=== PATIENT | female | born 1985 | race Asian ===

== ENCOUNTER 2019-12-17 16:41 | Outpatient (CLI) | payer MEDICAID ==
[~2019-12-17] VITALS: Ht 165.1 cm; Wt 79.1 kg
[2019-12-17 16:52] VITALS: BP 121/83; PULSE 87; TEMP 98
[2019-12-17] MEDS ORDERED: KENALOG DENTAL P5 GM DT (17:07)
[2019-12-17] MEDS ORDERED: LAMICTAL 100MG100 MG PO (17:07)
[2019-12-17] MEDS ORDERED: PRENATAL (17:08)
[2019-12-17 17:30] VITALS: BP 121/83; PULSE 87; TEMP 98
[2019-12-17 18:00] VITALS: BP 138/91; PULSE 74
[2019-12-17 18:15] VITALS: BP 143/97; PULSE 71
[2019-12-17 18:30] VITALS: BP 138/94; PULSE 71
--- NOTE | 2019-12-17 18:45 | NUR ---
SVE unchanged from previous exam. Pt ok with plan to discharge home.
[2019-12-17 18:50] VITALS: BP 129/76; PULSE 98
--- NOTE | 2019-12-17 19:00 | NUR ---
Discharge instructions reviewed with patient, pt and spouse verbalized understanding. All questions answered. Pt and spouse seen ambulating off unit.
== END 2019-12-17 19:00 | disposition home or self-care (01) ==
LOC: LDRO 16:41 → LDR 17:15 → LDRO 19:00
DX: O62.9 Abnormality of forces of labor, unspecified (principal); Z3A.39 39 weeks gestation of pregnancy
CPT/HCPCS: OP

== ENCOUNTER 2019-12-21 21:08 | Outpatient (CLI) | payer MEDICAID ==
[~2019-12-21] VITALS: Ht 165.1 cm; Wt 79.5 kg
[~2019-12-21 21:08] MED LIST: KENALOG DENTAL P5 GM DT; LAMICTAL 100MG100 MG PO; PRENATAL
[2019-12-21 21:30] VITALS: BP 121/77; PULSE 83; TEMP 98.3
--- NOTE | 2019-12-21 22:00 | NUR ---
2109- Patient ambulatory from ED with . Patient spoke to on the provider line and she suggested patient to be seen on L+D. Patient here with complaints of vaginal bleeding that she reports as a small amount of "bright red blood in the toilet" at 2030 and then has gradually become dark brown and clumpy. Patient reports good movement and intermittent mild contractions. Patient was seen by in the office today. Patient denies any leaking of fluid. 2114- SVE /-2 with clumpy dark brown discharge noted on exam glove. FHR reassuring with accels present. 2209- SVE /-2 and unchanged from previous SVE. Brown discharge still present. Patient reports round ligament pain with contractions. 2214- See Physician Notification. 2244- Discharge instructions explained in depth to patient and family. Questions encouraged and answered. Patient and family ambulatory off unit.
[2019-12-21 22:22] VITALS: BP 126/83; PULSE 81
== END 2019-12-21 22:45 | disposition home or self-care (01) ==
LOC: LDRO 21:08
DX: O62.9 Abnormality of forces of labor, unspecified (principal); O46.93 Antepartum hemorrhage, unspecified, third trimester; Z3A.39 39 weeks gestation of pregnancy

== ENCOUNTER 2019-12-22 02:56 | Inpatient (IN) | payer MEDICAID ==
[2019-12-22] VITALS (23 sets, daily range): BP systolic 103–152; BP diastolic 59–101; PULSE 70–100; TEMP 97.3–98.4
[~2019-12-22] VITALS: Ht 165.1 cm; Wt 79.5 kg
[2019-12-22 03:47] LABS: BASO % 0.4 % (0.0-2.0); EOS # 0.1 (0.0-0.7); EOS % 1.9 % (0-4.0); GRAN # 4.5 (1.4-6.5); GRAN % 59.8 % (42.2-75.2); HEMATOCRIT 38.9 % (37.0-47.0); HEMOGLOBIN 12.1 g/dl (12.5-16.0); LYMPH # 2.2 (1.2-3.4); LYMPH % 28.7 % (20.0-51.0); MEAN CELL VOLUME 90 fl (80.0-100.0); MEAN CORPUSCULAR HEMOGLOBIN 28 pg (27.0-31.0); MEAN CORPUSCULAR HGB CONC 31 g/dl (33.0-37.0); MONO # 0.7 (0.1-0.6); MONO % 8.8 % (1.7-9.3); PLATELET COUNT 275 K/mm3 (130-400); RED BLOOD COUNT 4.33 M/mm3 (4.10-5.30); REDCELL DISTRIBUTION WIDTH-CV 14.3 % (11.5-14.5)
[2019-12-23 07:45] VITALS: BP 125/85; PULSE 74; TEMP 97.3
[2019-12-23 14:45] VITALS: BP 116/81; PULSE 80; TEMP 97.1
[2019-12-23 19:10] VITALS: BP 118/65; PULSE 73; TEMP 98.4
[2019-12-24 07:20] VITALS: BP 109/76; PULSE 69; TEMP 97.8
[2019-12-24] MEDS ORDERED: IBU600 MG PO (08:49)
== END 2019-12-24 13:30 | disposition home or self-care (01) | DRG 807 ==
LOC: LDRO 02:56 → LDR 03:14 → OB 03:14
PROVIDERS: ADMIT Obstetrics & Gynecology
PROC: 10907ZC Drainage of Amniotic Fluid, Therapeutic from Products of Conception, Via Natural or Artificial Opening (ICD-10-PCS; principal; 2019-12-22)
PROC: 10E0XZZ Delivery of Products of Conception, External Approach (ICD-10-PCS; 2019-12-22)
PROC: 0KQM0ZZ Repair Perineum Muscle, Open Approach (ICD-10-PCS; 2019-12-22)
DX: O70.1 Second degree perineal laceration during delivery (principal); Z37.0 Single live birth; Z3A.39 39 weeks gestation of pregnancy
CPT/HCPCS: J1200; J2590; J7120

== ENCOUNTER 2020-04-28 18:02 | Emergency (ER) | payer OTHER ==
[~2020-04-28] VITALS: Ht 165.1 cm; Wt 59.1 kg
[~2020-04-28 18:02] MED LIST changes: +IBU600 MG PO
[2020-04-28 18:10] VITALS: TEMP 99
[2020-04-28] MEDS ORDERED: ZOLOFT 25MG25 MG PO (18:48)
[2020-04-28] MEDS ORDERED: ZOLOFT 50MG50 MG PO (18:49)
[2020-04-28] MEDS ORDERED: FLEXERIL 1010 MG/TAB PO (20:07)
[2020-04-28 20:30] VITALS: BP 105/86; PULSE 67
== END 2020-04-28 20:30 | disposition home or self-care (01) ==
LOC: COL.ER 18:02
DX: S09.90XA Unspecified injury of head, initial encounter (principal); S16.1XXA Strain of muscle, fascia and tendon at neck level, initial encounter; V43.62XA Car passenger injured in collision with other type car in traffic accident, initial encounter; Y92.410 Unspecified street and highway as the place of occurrence of the external cause
CPT/HCPCS: J1885

== ENCOUNTER 2020-06-01 10:38 | Emergency (ER) | payer MEDICAID ==
[~2020-06-01] VITALS: Ht 165.1 cm; Wt 59.1 kg
[~2020-06-01 10:38] MED LIST changes: +FLEXERIL 1010 MG/TAB PO; +ZOLOFT 25MG25 MG PO; +ZOLOFT 50MG50 MG PO
[2020-06-01 10:44] VITALS: TEMP 98.1
[2020-06-01] MEDS ORDERED: FLONASEALLERGY NS (11:15)
[2020-06-01 11:22] VITALS: BP 113/78; PULSE 90
== END 2020-06-01 11:22 | disposition home or self-care (01) ==
LOC: COL.ER 10:38
DX: H69.93 Unspecified Eustachian tube disorder, bilateral (principal); J00 Acute nasopharyngitis [common cold]; F41.9 Anxiety disorder, unspecified; G40.909 Epilepsy, unspecified, not intractable, without status epilepticus; Z88.6 Allergy status to analgesic agent

== ENCOUNTER 2020-11-07 16:19 | Emergency (ER) | payer BC ==
[~2020-11-07] VITALS: Ht 165.1 cm; Wt 54.5 kg
[~2020-11-07 16:19] MED LIST changes: +FLONASEALLERGY NS
[2020-11-07 16:30] VITALS: TEMP 96.6
[2020-11-07 18:04] VITALS: BP 101/61; PULSE 64
== END 2020-11-07 18:05 | disposition home or self-care (01) ==
LOC: COL.ER 16:19
DX: U07.1 COVID-19 (principal); Z88.6 Allergy status to analgesic agent

== ENCOUNTER 2021-08-05 14:13 | Emergency (ER) | payer MEDICAID ==
[~2021-08-05] VITALS: Ht 167.6 cm; Wt 54.5 kg
[2021-08-05 14:39] VITALS: TEMP 99.3
[2021-08-05] MEDS ORDERED: PREDNISONE20 MG PO (16:02)
[2021-08-05] MEDS ORDERED: AMOXICILLIN 8751 TAB PO (16:02)
[2021-08-05 16:30] VITALS: BP 129/61; PULSE 88
== END 2021-08-05 16:40 | disposition home or self-care (01) ==
LOC: COL.ER 14:13
DX: J01.90 Acute sinusitis, unspecified (principal); Z20.822 Contact with and (suspected) exposure to COVID-19

== ENCOUNTER 2022-03-04 19:38 | Emergency (ER) | payer MEDICAID ==
[~2022-03-04] VITALS: Ht 165.1 cm; Wt 54.5 kg
[~2022-03-04 19:38] MED LIST changes: +AMOXICILLIN 8751 TAB PO; +PREDNISONE20 MG PO
[2022-03-04 19:46] VITALS: BP 106/61; TEMP 98.4
[2022-03-04] MEDS ORDERED: VALTREX1 GM PO ×2 (20:27)
[2022-03-04 20:38] VITALS: PULSE 72
== END 2022-03-04 20:41 | disposition home or self-care (01) ==
LOC: COL.ER 19:38
DX: B02.9 Zoster without complications (principal)

== ENCOUNTER 2022-05-02 17:10 | Emergency (ER) | payer MEDICAID ==
[~2022-05-02] VITALS: Ht 165.1 cm; Wt 54.5 kg
[~2022-05-02 17:10] MED LIST changes: +VALTREX1 GM PO
[2022-05-02 18:06] VITALS: TEMP 98.1
[2022-05-02 20:50] VITALS: BP 122/73; PULSE 51
[2022-05-02] MEDS ORDERED: FLEXERIL 1010 MG/TAB PO (21:32)
== END 2022-05-02 21:41 | disposition home or self-care (01) ==
LOC: COL.ER 17:10
DX: S16.1XXA Strain of muscle, fascia and tendon at neck level, initial encounter (principal); W22.8XXA Striking against or struck by other objects, initial encounter; Y93.I1 Activity, roller coaster riding
CPT/HCPCS: J1885; J2360

== ENCOUNTER 2022-12-03 20:01 | Emergency (ER) | payer BC, MEDICAID ==
[~2022-12-03] VITALS: Ht 165.1 cm; Wt 54.5 kg
[2022-12-03 20:08] VITALS: BP 101/65; PULSE 72; TEMP 98.1
[2022-12-03] MEDS ORDERED: FLEXERIL 1010 MG/TAB PO (21:32)
== END 2022-12-03 21:43 | disposition home or self-care (01) ==
LOC: COL.ER 20:01
DX: S16.1XXA Strain of muscle, fascia and tendon at neck level, initial encounter (principal); M25.512 Pain in left shoulder; Z28.311 Partially vaccinated for COVID-19; W01.0XXA Fall on same level from slipping, tripping and stumbling without subsequent striking against object, initial encounter; Y92.009 Unspecified place in unspecified non-institutional (private) residence as the place of occurrence of the external cause
CPT/HCPCS: J1885